=== PATIENT | female | born 1990 ===

== ENCOUNTER 2020-08-07 10:29 | Outpatient (CLI) | payer OTHER ==
--- NOTE | 2020-08-07 11:40 | XRay Report ---
LUMBAR SPINE 3 VIEWS INDICATION / CLINICAL INFORMATION: BACK PAIN. COMPARISON: None available. FINDINGS: No fracture, subluxation or other significant abnormality. Signer Name: Manfred Mullins MD Signed: 08/07/2020 11:36 AM Workstation Name: [id number]
== END 2020-08-07 10:30 | disposition home or self-care (01) ==
LOC: XRAY 10:29
PROVIDERS: ATTEND Internal Medicine
DX: M54.5 Low back pain (principal)
CPT/HCPCS: 72100